=== PATIENT | female | born 1995 | race Hispanic/Latino ===

== ENCOUNTER 2018-08-04 14:23 | Emergency (ER) | payer OTHER | END 2018-08-04 15:35 | disposition home or self-care (01) | LOC: EDH 14:23 | DX: N64.59 Other signs and symptoms in breast (principal); N64.52 Nipple discharge | CPT/HCPCS: 99281 ==

== ENCOUNTER 2019-07-31 17:33 | Emergency (ER) | payer SELFPAY | END 2019-07-31 18:09 | disposition home or self-care (01) | LOC: EDH 17:33 | DX: H10.33 Unspecified acute conjunctivitis, bilateral (principal) ==